=== PATIENT | male | born 1995 | race Caucasian/White ===

== ENCOUNTER 2016-12-05 22:18 | Inpatient (IN) | payer BC ==
[2016-12-05 22:58] LABS: Urine Bilirubin Negative (Negative); Urine Glucose Negative (Negative); Urine Nitrite Negative (Negative)
[2016-12-05 23:11] LABS: Benzodiazepine Urine Screen None Detected (None Detect)
--- NOTE | 2016-12-05 23:11 | ED ---
Meera Bernal SooYoung, scribed for Zeb Alicea MD on 12/05/16 at 2235 . 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 Pt states he took 16-20 oxycodone pills over the course of the day. He took about 5 pills around 0700, and another 5 pills mid-afternoon. Pt states he was attempting to commit suicide. He states a prev attempt about one week ago. He overdosed on Tylenol PM , but did not go to the hospital that time. - History Of Current Complaint Chief Complaint: EDOverdose Stated Complaint: OVERDOSE-OXYCODONE Time Seen by Provider: 12/05/16 22:33 Hx Obtained From: Patient, Family/Lead Nitrate Processor - parents present Ingestion History: Type/Name Of Drug - oxycodone, Amount Ingested - 16-20 pills Overdose Characteristics: Oral Associated Signs And Symptoms: Intentional Ingestion, Other: - pos: SI Related Hx: Suicidal, Suicidal: Prior Attempt(s) - Allergies/Home Medications Allergies/Adverse Reactions: Allergies Allergy/AdvReac Type Severity Reaction Status Date / Time No Known Allergies Allergy Verified 01/17/15 11:44 PMH/Surg Hx/FS Hx/Imm Hx Previously Healthy: Yes Respiratory History: Denies: Hx Chronic Obstructive Pulmonary Disease (COPD) Sensory History: Denies: Hx Deafness Opthamlomology History: Denies: Hx Legally Blind Infectious Disease History: Denies: History Other Infectious Disease, Traveled Outside the [place] in Last 30 Days - Social History Occupation: Employed Full-time Lives: With Family Alcohol Use: None Hx Substance Use: Yes Substance Use Type: Reports: Other - oxycodone OD Hx Tobacco Use: No Smoking Status (MU): Never Smoked Tobacco Review of Systems Positive: Other - pos: overdose. Negative: Fever Psychological: Other - pos: SI with attempt All Other Systems Reviewed And Are Negative: Yes Physical Exam Triage Information Reviewed: Yes Vital Signs On Initial Exam: Initial Vitals Temp Pulse Resp BP 99 F 100 20 166/88 12/05/16 22:22 12/05/16 22:22 12/05/16 22:22 12/05/16 22:22 Vital Signs Reviewed: Yes Appearance: Positive: No Pain Distress, Thin Skin: Positive: Warm Head/Face: Positive: Normal Head/Face Inspection Eyes: Positive: KIERSTEN ENT: Positive: Hearing grossly normal Neck: Positive: Supple Respiratory/Lung Sounds: Positive: Clear to Auscultation, Breath Sounds Present Cardiovascular: Positive: RRR Abdomen Description: Positive: Nontender, Soft. Negative: Distended, Guarding Bowel Sounds: Positive: Present Musculoskeletal: Positive: Strength/ROM Intact Neurological: Positive: Alert, Oriented to Person Place, Time Diagnostics - Vital Signs Vital Signs Temp Pulse Resp BP 12/05/16 22:22 99 F 100 20 166/88 - Laboratory Lab Results: Lab Results 12/05/16 Range/Units 22:37 Urine Color Yellow Urine Appearance Clear Urine pH 5.0 (5-9) Ur Specific [place] 1.035 H (1.010-1.030) Urine Protein Negative (Negative) Urine Ketones Trace H (Negative) Urine Blood Negative (Negative) Urine Nitrate Negative (Negative) Urine Bilirubin Negative (Negative) Urine Urobilinogen Negative (Negative) Ur Leukocyte Esterase Negative (Negative) Urine Glucose Negative (Negative) Result Diagrams: 12/05/16 23:16 12/05/16 23:16 Lab Statement: Any lab studies that have been ordered have been reviewed, and results considered in the medical decision making process. - EKG 1 EKG Rhythm: Sinus Tachycardia Re-Evaluation - Re-Evaluation First Eval Change: Unchanged - pt seen by crisis, willadmit Course/Dx - Course Course Of Treatment: Pt is a 20 y/o M presents after ingesting 16-20 oxycodone pills over the course of the day. He took about 5 pills around 0700, and another 5 pills mid-afternoon. Pt states he was attempting to commit suicide. He states a prev attempt about one week ago. He overdosed on Tylenol PM, but did not go to the hospital that time. UA results are WNL, except trace ketones present and specific gravity is 1.035. Drug screen is clear except presumptive positive for opiods. EKG showed sinus tachycardia. Medically cleared for [facility] at 0018. - Diagnoses Provider Diagnoses: Suicide attempt - Physician Notifications Instructed by Provider To: Admit As Inpatient Discharge - Discharge Plan Condition: Fair Disposition: ADMITTED TO [facility] Referrals: Riley Woodard MD [Primary Care Provider] - The documentation as recorded by the scribe, VanDeMark,SooYoung accurately reflects the service I personally performed and the decisions made by me, Zeb Alicea MD.
[2016-12-05 23:36] LABS: Hematocrit 43 % (42-52); Hemoglobin 14.9 g/dl (14.0-18.0); Mean Corpuscular HGB Conc 35 g/dl (31-36); Mean Corpuscular Hemoglobin 29 pg (27-31); Mean Corpuscular Volume 83 fL (80-94); Mean Platelet Volume 9 um3 (7.4-10.4); Red Blood Count 5.17 10^6/ul (4.0-5.4); Red Cell Distribution Width 13 % (10.5-15); White Blood Count 7.7 10^3/ul (3.5-10.8)
[2016-12-05 23:48] LABS: Acetaminophen 19 mcg/mL; Alcohol < 10 mg/dL (<10); Salicylate < 2.50 mg/dL (<30)
[2016-12-05 23:49] LABS: ALT 10 U/L (7-52); AST 11 U/L (13-39); Albumin 4.3 g/dL (3.2-5.2); Alkaline Phosphatase 70 U/L (34-104); Anion Gap 7 mmol/L (2-11); BUN/Creatinine Ratio 8.8 (8-20); Blood Urea Nitrogen 10 mg/dL (6-24); CO2 Carbon Dioxide 24 mmol/L (22-32); Calcium 9.3 mg/dL (8.6-10.3); Chloride 105 mmol/L (101-111); EGFR African American 106.4 (>60); EGFR Non-African American 82.8 (>60); Globulin 2.7 g/dL (2-4); Glucose 96 mg/dL (70-100); Potassium 3.7 mmol/L (3.5-5.0); Sodium 136 mmol/L (133-145)
[2016-12-06] MEDS ORDERED: Nicotine Inhaler* 10 MG AMP INH PRN (04:50)
[2016-12-06] MEDS ORDERED: chlorproMAZINE TAB* 50 MG Q6H PRN AGITATION PO (04:50)
[2016-12-06] MEDS ORDERED: Acetaminophen TAB* 325 MG PO PRN (04:50)
[2016-12-06] MEDS ORDERED: Al Hydrox/Mg Hydrox/Simet LIQ* 30 ML UDC PO PRN (04:50)
[2016-12-06] MEDS ORDERED: Mouth Piece, Nicotine* 1 EACH CARTRIDGE INH SCH (04:50)
--- NOTE | 2016-12-06 12:19 | PN ---
MHU: Group Therapy Note - Service Type Service Type: [id number] Group Psychotherapy - Cognitive Behavioral Group Therapy ( CBT):Patient was attentive and participatory in CBT programming this morning, and remained in good behavioral control. Patient expressed positive insights regarding relevant treatment interventions and goals.
[2016-12-06] MEDS: Vitamin THERAPEUTIC TAB PO SCH (13:12)
--- NOTE | 2016-12-06 17:00 | HP ---
H&P (Free Text) History and Physical: HPI: ---- 20yo patient with no significant PPHx presents to the [facility] ED, brought by his parents, after an intentional OD on ~20 Oxycodone and Tylenol PM tabs. Patient reports he did not take all 20 at the same time. He reports taking 6-7 in am and another 6-7 midday, and another 6-7 in the evening. Patient reports trigger was his assuming a very close female friend would be leaving him for another male. Patient denies other stressors. Patient reports alcohol or illicit drug use played no role in this behavior. He reports no hx of suicide attempt. He reports no significant family hx of MH issues. He has supportive friends and family. He denies legal, occupational, or medical stressors. On interview, patient is calm, cooperative, and engaged. He displays no PMR. No delay in cognition is noted. TP is linear. Speech is spontaneous and he demonstrates an appropriate TC. Patient has visible in the milieu and patient reports he attended today's groups. Patient reports 3/10 intensity depression, but ongoing anxiety that he has lost his best friend. He denies SI on the unit. Patient reports recently sleep and appetite have been wnl. He denies feelings of hopelessness and denies anhedonia. He is future oriented in conversation regarding his working after graduation, with plans to go back and get his college degree. Patient denies hx of physical, emotional, or sexual abuse. No symptoms of psychosis reported or noted on interview. Past Psych Hx: Inpt - This is patient's 1st Outpt - NONE Dx - NONE Psychotropic Med Hx - Patient is psychotropic med naive Suicide attempt Hx / SIB Hx: Patient denies hx of suicide attempt and hx of SIB Trauma Hx: Patient denies hx of physical, emotional, or sexual abuse Substance Hx: Patient denies hx of alcohol abuse. Patient denies hx of illicit substance use. Medical Hx: NONE Surgical Hx: NONE Allergies: --------- NKDA Family Hx: -Patient reports to his knowledge, he has no family hx of attempted or completed suicide. -Patient reports to his knowledge, he has no family hx of MH issues. -Patient reports to his knowledge, he has no family hx of BONIFACIO issues. Social Hx: --------- -Born in [place], [place] -Raised in [place], [place] by mom and dad, parents are -Only child -HLOE: HS diploma -Single, no children -Currently employed -No hx of arrest for assault or DV -No legal hx -Reports no firearms in his home Home Meds: NONE PHYSICAL EXAM: GEN - in NAD, looks stated age HEENT - NC/AT, EOEMI, no lesions or discharge noted, conjunctivae clear NECK - supple, trachea midline, no JVD, no LAD CARDIAC - S1/S2, no discernable murmurs ABD - (+) BS x 4 quad, non-tender EXT - no edema, no lesions MUSCULOSKEL - 5/5 muscle strength in all extremities SKIN - intact, no lesions; texture, turgor, & pigmentation wnl NEURO - CN 2-12, steady gait VITALS: Vital Signs (72 hours) 12/05/16 12/05/16 12/05/16 22:22 22:42 22:44 Temperature 99 F Pulse Rate 100 94 Respiratory 20 13 15 Rate Blood Pressure 166/88 153/71 (mmHg) O2 Sat by Pulse 96 Oximetry 12/05/16 12/05/16 12/05/16 22:48 23:00 23:14 Temperature 99 F Pulse Rate 100 81 97 Respiratory 20 13 14 Rate Blood Pressure 166/88 143/82 147/86 (mmHg) O2 Sat by Pulse 99 95 97 Oximetry 12/05/16 12/05/16 12/06/16 23:30 23:38 00:00 Temperature Pulse Rate 82 82 93 Respiratory 13 15 10 Rate Blood Pressure 154/71 (mmHg) O2 Sat by Pulse 96 96 97 Oximetry 12/06/16 12/06/16 12/06/16 00:01 07:27 08:20 Temperature 99.0 F Pulse Rate 82 77 Respiratory 11 18 16 Rate Blood Pressure 143/81 142/37 (mmHg) O2 Sat by Pulse 96 100 Oximetry LABS: ----- Laboratory Tests 12/05/16 12/05/16 12/05/16 22:37 22:37 23:16 WBC 7.7 RBC 5.17 Hgb 14.9 Hct 43 MCV 83 MCH 29 MCHC 35 RDW 13 Plt Count 222 MPV 9 Neut % (Auto) 58.9 Lymph % (Auto) 32.2 [place] % (Auto) 5.7 Eos % (Auto) 2.7 Baso % (Auto) 0.5 Absolute Neuts (auto) 4.5 Absolute Lymphs (auto) 2.5 Absolute Monos (auto) 0.4 Absolute Eos (auto) 0.2 Absolute Basos (auto) 0 Absolute Nucleated RBC 0 Nucleated RBC % 0.1 Sodium Potassium Chloride Carbon Dioxide Anion Gap BUN Creatinine Est GFR ( Amer) Est GFR (Non-Af Amer) BUN/Creatinine Ratio Glucose Lactic Acid Calcium Total Bilirubin AST ALT Alkaline Phosphatase Total Protein Albumin Globulin Albumin/Globulin Ratio Urine Color Yellow Urine Appearance Clear Urine pH 5.0 Ur Specific [place] 1.035 H Urine Protein Negative Urine Ketones Trace H Urine Blood Negative Urine Nitrate Negative Urine Bilirubin Negative Urine Urobilinogen Negative Ur Leukocyte Esterase Negative Urine Glucose Negative Salicylates Urine Opiates Screen Presumptive positive H Acetaminophen Ur Barbiturates Screen None detected Ur Phencyclidine Scrn None detected Ur Amphetamines Screen None detected U Benzodiazepines Scrn None detected Urine Cocaine Screen None detected U Cannabinoids Screen None detected Serum Alcohol 12/05/16 12/05/16 23:16 23:16 WBC RBC Hgb Hct MCV MCH MCHC RDW Plt Count MPV Neut % (Auto) Lymph % (Auto) [place] % (Auto) Eos % (Auto) Baso % (Auto) Absolute Neuts (auto) Absolute Lymphs (auto) Absolute Monos (auto) Absolute Eos (auto) Absolute Basos (auto) Absolute Nucleated RBC Nucleated RBC % Sodium 136 Potassium 3.7 Chloride 105 Carbon Dioxide 24 Anion Gap 7 BUN 10 Creatinine 1.14 Est GFR ( Amer) 106.4 Est GFR (Non-Af Amer) 82.8 BUN/Creatinine Ratio 8.8 Glucose 96 Lactic Acid 1.1 Calcium 9.3 Total Bilirubin 0.60 AST 11 L ALT 10 Alkaline Phosphatase 70 Total Protein 7.0 Albumin 4.3 Globulin 2.7 Albumin/Globulin Ratio 1.6 Urine Color Urine Appearance Urine pH Ur Specific [place] Urine Protein Urine Ketones Urine Blood Urine Nitrate Urine Bilirubin Urine Urobilinogen Ur Leukocyte Esterase Urine Glucose Salicylates < 2.50 Urine Opiates Screen Acetaminophen 19 Ur Barbiturates Screen Ur Phencyclidine Scrn Ur Amphetamines Screen U Benzodiazepines Scrn Urine Cocaine Screen U Cannabinoids Screen Serum Alcohol < 10 MSE: ----- Appearance - moderate build,tall 20yo male, looks stated age, fair hygeine, in NAD Behavior - engaged, calm, cooperative Speech - RVR wnl, prosody wnl Eye Contact - fair Mood - "doing ok" Affect -tense TP - linear TC - appropriate, regretful Perception - no signs of psychosis noted or reported Orientation - A&Ox3 Cognition - intact Insight - poor to fair Judgment - poor to fair SI / HI - reports neither currently, admission for suicide attempt ASSESSMENT: 20yo patient with no significant PPHx presents to the [facility] ED, brought by his parents, after OD on ~20 Oxycodone and Tylenol PM tabs. Patient did not take all 20 at the same time. He reports taking 6-7 in am and another 6-7 mid day, and another 6-7 in the evening. Patient reports trigger being assuming a very close female friend would leave him for another male. Patient reports alcohol and illicit drug use played no role in this behavior. He reports no hx of suicide attempt. He reports no significant family hx of MH issues. He has supportive friends and family. He currently denies SI/ HI and is regretful of this behavior. DIAGNOSIS: 1. Adjustment d/o with disturbance of mood and conduct PLAN: ------ 1. Continue admission to [facility] for safety. 2. Not considering medication at this point. 3. Continue compiling collateral information from parents. 4. Patient to participate in milieu activities and groups.
[2016-12-07] MEDS: Vitamin THERAPEUTIC TAB PO SCH (09:57)
--- NOTE | 2016-12-07 15:16 | PN ---
Subjective - Subjective Subjective: Faheem endorses lower distress level, improving mood, absence of suicidal ideation or urges for sib or withdrawal symptoms. He reports not feeling as upset about relational issues that led to his overdose. He is future-oriented, discusses plan to enroll in [employer] for the fall. Per staff, he has been adherent to unit's routines. Objective - Appearance Appearance: Healthy Appearing Dysmorphic Features: No Hygiene: Normal Grooming: Well Kept - Behavior Motor Skills: Fine Motor Skills: Normal, Gross Motor Skills: Normal, Gait: Normal Psychomotor Activities: Normal Exhibits Abnormal Movement: No - Attitude and Relatedness Attitude and Relatedness: Superficially Cooperative Eye Contact: Fair - Speech Quality: Unpressured Latencies: Normal Quantity: Appropriate - Mood Patient's Decription of Mood: "Okay" - Affect Observed Affect: Fair Affect Consistent with: Euthymia - Thought Process Patient's Thought Process: Coherent, Goal Directed Thought Content: No Passive Wish, No Suicidal Planning, No Homicidal Ideation, No Paranoid Ideation - Sensorium Delusions: No Experiencing Hallucinations: No, Sensorium is Clear - Level of Consciousness Level of Consciousness: Alert Orientation: Yes Intact - Impulse Control Impulse Control: Intact - Insight and Judgement Insight and Judgement: Poor Assessment - Assessment Merits Inpatient Hospitalization: For Ongoing Evaluation, Consolidate Improvements, For Discharge Planning Inpatient DSM-IV Dx: 1. Adjustment d/o with disturbance of mood and conduct Clinical Impression: 20yo patient with no significant PPHx presents to the [facility] ED, brought by his parents, after intentional OD on ~20 Oxycodone and Tylenol in the context of relational difficulties. Stabilizing quickly in this structured setting, denying suicidality and monica for safety. Plan - Treatment Plan Level of Observation: 15 Minute Checks, Full Code Status Obtain Collateral Information: Yes Other Treatment in Form of: Structure and Support, Therapeutic Milieu, Group Therapy, Individual Therapy Medications: Current Medications Acetaminophen (Tylenol Tab*) 650 mg PO Q4H PRN PRN Reason: PAIN or TEMP > 101 F Al Hydrox/Mg Hydrox/Simethicone (Maalox Plus*) 30 ml PO Q4H PRN PRN Reason: INDIGESTION Chlorpromazine HCl (Thorazine Tab*) 50 mg PO Q6H PRN PRN Reason: AGITATION Device (Nicotine Mouth Piece*) 1 each INH .CARTRIDGE SILVIO Diphenhydramine HCl (Benadryl Po*) 50 mg PO Q6H PRN PRN Reason: AGITATION/INSOMNIA Multivitamins (Theragran Tab*) 1 tab PO DAILY SILVIO Last Admin: 12/07/16 09:57 Dose: Not Given Nicotine (Nicotine Inhaler*) 10 mg INH Q2H PRN PRN Reason: CRAVING - Discharge Plan Discharge Plan: Outpatient Follow Up Outpatient Program: [facility]
[2016-12-08 08:28] VITALS: BP 130/76
[2016-12-08] MEDS: Vitamin THERAPEUTIC TAB PO SCH (09:19)
--- NOTE | 2016-12-08 11:09 | PN ---
MHU: Group Therapy Note - Service Type Service Type: [id number] Group Psychotherapy - Cognitive Behavioral Group Therapy ( CBT):Patient was attentive and participatory in CBT programming this morning, and remained in good behavioral control. Patient expressed positive insights regarding relevant treatment interventions and goals.
--- NOTE | 2016-12-08 14:36 | DS ---
Subjective - Subjective Service Types: [id number] Hosp [place] Day Mgmt simple under 30 min Subjective: Patient is active in milieu activities, engaged in group, and has been more social with peers. Patient reports his mood as "fine". He reports good benefit from groups. He is future oriented in conversation reporting his interest in pursuing getting into college and working toward a business management degree. Patient has reported no SI/HI or AH/VH since admission. Sleep and appetite are wnl. Patient asked to present to his local ED if SI recurs. He was amenable and acknowledged understanding of his family and community supports. Objective - Appearance Appearance: Well Developed/Nourished Dysmorphic Features: No Hygiene: Normal Grooming: Fairly Well Kept - Behavior Psychomotor Activities: Normal Exhibits Abnormal Movement: No - Attitude and Relatedness Attitude and Relatedness: Cooperative Eye Contact: Good - Speech Quality: Unpressured Latencies: Normal Quantity: Appropriate - Mood Patient's Decription of Mood: "Fine" - Affect Observed Affect: Fair Affect Consistent with: Euthymia - Thought Process Patient's Thought Process: Coherent Thought Content: No Passive Wish, No Suicidal Planning, No Homicidal Ideation, No Paranoid Ideation - Sensorium Experiencing Hallucinations: No, Sensorium is Clear Type of Hallucinations: Visual: No, Auditory: No, Command: No - Level of Consciousness Level of Consciousness: Alert Orientation: Yes Intact, Yes Orientated to Time, Yes Orientated to Place, Yes Orientated to Person - Impulse Control Impulse Control: Intact - Insight and Judgement Insight and Judgement: Fair - Group Participation Particating in Group Activities: Yes - Medication Management Medication Management Adherence: Yes Treatment Course & Assessment Clinical Course & Impression: HOSPITAL COURSE: 20yo patient with no significant PPHx presents to the [facility] ED, brought by his parents, after an intentional OD on ~20 Oxycodone and Tylenol PM tabs. Patient reports he did not take all 20 at the same time. He reports taking 6-7 in am and another 6-7 midday, and another 6-7 in the evening. Patient reports trigger was his assuming a very close female friend would be leaving him for another male. Patient denies other stressors. Patient reports alcohol or illicit drug use played no role in this behavior. He reports no hx of suicide attempt. He reports no significant family hx of MH issues. He has supportive friends and family. He denies legal, occupational, or medical stressors. Patient found great benefit from groups and has focused himself on pursuing college admission to work toward a business management degree. On day of discharge patient. Patient is future oriented. Patient's acute risk has been reduced significantly. Patient is amenable to discharge f/u plan and will be discharged home to mother's care. PERTINENT LABS: Laboratory Tests 12/05/16 12/05/16 12/05/16 22:37 22:37 23:16 WBC 7.7 RBC 5.17 Hgb 14.9 Hct 43 MCV 83 MCH 29 MCHC 35 RDW 13 Plt Count 222 MPV 9 Neut % (Auto) 58.9 Lymph % (Auto) 32.2 [place] % (Auto) 5.7 Eos % (Auto) 2.7 Baso % (Auto) 0.5 Absolute Neuts (auto) 4.5 Absolute Lymphs (auto) 2.5 Absolute Monos (auto) 0.4 Absolute Eos (auto) 0.2 Absolute Basos (auto) 0 Absolute Nucleated RBC 0 Nucleated RBC % 0.1 Sodium Potassium Chloride Carbon Dioxide Anion Gap BUN Creatinine Est GFR ( Amer) Est GFR (Non-Af Amer) BUN/Creatinine Ratio Glucose Lactic Acid Calcium Total Bilirubin AST ALT Alkaline Phosphatase Total Protein Albumin Globulin Albumin/Globulin Ratio Urine Color Yellow Urine Appearance Clear Urine pH 5.0 Ur Specific [place] 1.035 H Urine Protein Negative Urine Ketones Trace H Urine Blood Negative Urine Nitrate Negative Urine Bilirubin Negative Urine Urobilinogen Negative Ur Leukocyte Esterase Negative Urine Glucose Negative Salicylates Urine Opiates Screen Presumptive positive H Acetaminophen Ur Barbiturates Screen None detected Ur Phencyclidine Scrn None detected Ur Amphetamines Screen None detected U Benzodiazepines Scrn None detected Urine Cocaine Screen None detected U Cannabinoids Screen None detected Serum Alcohol 12/05/16 12/05/16 23:16 23:16 WBC RBC Hgb Hct MCV MCH MCHC RDW Plt Count MPV Neut % (Auto) Lymph % (Auto) [place] % (Auto) Eos % (Auto) Baso % (Auto) Absolute Neuts (auto) Absolute Lymphs (auto) Absolute Monos (auto) Absolute Eos (auto) Absolute Basos (auto) Absolute Nucleated RBC Nucleated RBC % Sodium 136 Potassium 3.7 Chloride 105 Carbon Dioxide 24 Anion Gap 7 BUN 10 Creatinine 1.14 Est GFR ( Amer) 106.4 Est GFR (Non-Af Amer) 82.8 BUN/Creatinine Ratio 8.8 Glucose 96 Lactic Acid 1.1 Calcium 9.3 Total Bilirubin 0.60 AST 11 L ALT 10 Alkaline Phosphatase 70 Total Protein 7.0 Albumin 4.3 Globulin 2.7 Albumin/Globulin Ratio 1.6 Urine Color Urine Appearance Urine pH Ur Specific [place] Urine Protein Urine Ketones Urine Blood Urine Nitrate Urine Bilirubin Urine Urobilinogen Ur Leukocyte Esterase Urine Glucose Salicylates < 2.50 Urine Opiates Screen Acetaminophen 19 Ur Barbiturates Screen Ur Phencyclidine Scrn Ur Amphetamines Screen U Benzodiazepines Scrn Urine Cocaine Screen U Cannabinoids Screen Serum Alcohol < 10 Discharge Meds: NONE Consultants: NONE Follow-Up: Appts for within the next 2 weeks scheduled by BRIAN for PCP. Clear for Discharge: Adequate Clinical Respons, Acceptable Safety Profile Inpatient DSM-IV Dx: 1. Adjustment d/o with disturbance of mood and conduct Discharge Planning - Discharge Planning Discharge Plan: Outpatient Follow Up Outpatient Program: [facility] Recommendations for Continuing Care: Primary Care Followup Medications: Current Medications Acetaminophen (Tylenol Tab*) 650 mg PO Q4H PRN PRN Reason: PAIN or TEMP > 101 F Al Hydrox/Mg Hydrox/Simethicone (Maalox Plus*) 30 ml PO Q4H PRN PRN Reason: INDIGESTION Chlorpromazine HCl (Thorazine Tab*) 50 mg PO Q6H PRN PRN Reason: AGITATION Device (Nicotine Mouth Piece*) 1 each INH .CARTRIDGE SILVIO Diphenhydramine HCl (Benadryl Po*) 50 mg PO Q6H PRN PRN Reason: AGITATION/INSOMNIA Multivitamins (Theragran Tab*) 1 tab PO DAILY REPLACED BY [facility] Last Admin: 12/08/16 09:19 Dose: Not Given Nicotine (Nicotine Inhaler*) 10 mg INH Q2H PRN PRN Reason: CRAVING Discharge Planning: Prescriptions provided for discharge [x] Yes [] No Follow up care details as per social work arrangements. Patient response to discharge plan: [] eager for discharge [x] agreeable with discharge plan [] ambivalent about discharge [] disagrees with discharge today
== END 2016-12-08 16:35 | disposition home or self-care (01) | DRG 755 ==
LOC: ED 22:18 → BSU 12-06 05:20
PROVIDERS: ADMIT Psychiatry & Neurology Psychiatry; ATTEND Psychiatry & Neurology Psychiatry
PROC: GZHZZZZ Group Psychotherapy (ICD-10-PCS; principal; 2016-12-08)
DX: F43.25 Adjustment disorder with mixed disturbance of emotions and conduct (principal); F32.9 Major depressive disorder, single episode, unspecified; F41.9 Anxiety disorder, unspecified; T40.2X2A Poisoning by other opioids, intentional self-harm, initial encounter; Y92.009 Unspecified place in unspecified non-institutional (private) residence as the place of occurrence of the external cause
CPT/HCPCS: 36415; 80053; 80307; 80320; 80329; 81003; 83605; 85025; 90853; 93005; 99222; 99231; 99238; A9270-GY; G0480

== ENCOUNTER 2017-12-16 12:12 | Emergency (ER) | payer BC ==
[2017-12-16 13:05] VITALS: BP 148/69
--- NOTE | 2017-12-16 13:17 | ED ---
Head Injury - HPI Summary HPI Summary: Pt. is a 21 y.o male who presents to the ER for a head injury that occurred yesterday. Pt. states he jumped up to see if anything was on top of a dryer when he struck his left forehead o n the door frame. No LOC. Pt. c/o a mild headache today. He denies vision changes, N/V. Pt. concerned bc he was feeling "down" today and has a hx of depression. Pt. is currently on an antidepressant and sees a therapist regularly. He denies SI or HI. Symptoms are mild in severity. No current modifying factors. - History Of Current Complaint Chief Complaint: EDHeadInjury Stated Complaint: HEAD INJURY Time Seen by Provider: 12/16/17 12:44 Hx Obtained From: Patient Pain Intensity: 2 Pain Scale Used: 0-10 Numeric - Allergies/Home Medications Allergies/Adverse Reactions: Allergies Allergy/AdvReac Type Severity Reaction Status Date / Time No Known Allergies Allergy Verified 12/16/17 12:30 PMH/Surg Hx/FS Hx/Imm Hx Previously Healthy: Yes Respiratory History: Denies: Hx Chronic Obstructive Pulmonary Disease (COPD) Sensory History: Denies: Hx Contacts or Glasses, Hx Legally Blind, Hx Deafness, Hx Hearing Aid Opthamlomology History: Denies: Hx Contacts or Glasses, Hx Legally Blind Psychiatric History: Reports: Hx Suicide Attempt - OD 12/2016 Denies: Hx Eating Disorder, Hx Inpatient Treatment, Hx Community Mental Health Ut, Hx of Violent Episodes Against Others, Hx Substance Abuse Infectious Disease History: No Infectious Disease History: Denies: History Other Infectious Disease, Traveled Outside the [place] in Last 30 Days - Social History Occupation: Employed Full-time Lives: With Family Alcohol Use: None Hx Substance Use: Yes Substance Use Type: Reports: None Hx Tobacco Use: No Smoking Status (MU): Never Smoked Tobacco Have You Smoked in the Last Year: No Review of Systems Positive: Headache. Negative: Weakness, Paresthesia, Numbness, Syncope All Other Systems Reviewed And Are Negative: Yes Physical Exam Triage Information Reviewed: Yes Vital Signs On Initial Exam: Initial Vitals Temp Pulse Resp BP Pulse Ox 97.6 F 67 16 149/69 99 12/16/17 12:27 12/16/17 12:27 12/16/17 12:27 12/16/17 12:27 12/16/17 12:27 Vital Signs Reviewed: Yes Appearance: Positive: Well-Appearing - Pt. sitting on bed in NAD. Mother present. Skin: Positive: Warm, Dry Head/Face: Positive: Other - Small, superifical abrasion noted to the left forehead. No raccoon eyes or mack sign. Eyes: Positive: Normal, EOMI, KIERSTEN ENT: Positive: Other - No hemotympanum bilaterally. Neck: Positive: Supple, Nontender Neurological: Positive: Normal, CN Intact II-III Psychiatric: Positive: Affect/Mood Appropriate Diagnostics - Vital Signs Vital Signs Temp Pulse Resp BP Pulse Ox 12/16/17 13:02 97.6 F 68 16 148/69 99 12/16/17 12:27 97.6 F 67 16 149/69 99 - Laboratory Lab Statement: Any lab studies that have been ordered have been reviewed, and results considered in the medical decision making process. Head Injury Course/Dx Course Of Treatment: Patient presenting for evaluation after a minor head injury. No indication for head CT. Advised patient Tylenol or Motrin for pain as directed. To ice forehead intermittently. Close follow-up with PCP for recheck. Return to the ER if symptoms change or worsen. Patient understands and agrees with plan. - Diagnoses Differential Diagnosis/HQI/PQRI: Cerebral Contusion, Cervical Sprain, Concussion Without LOC, Contusion, Hematoma, Intracranial Bleed, Laceration, Skull Fracture Provider Diagnoses: Closed head injury Discharge - Sign-Out/Discharge Documenting (check all that apply): Patient Departure - Discharge Plan Condition: Good Disposition: HOME Patient Education Materials: Concussion (ED), Head Injury (ED) Referrals: Lit Guillen MD [Primary Care Provider] - Additional Instructions: Schedule a close follow up appointment with your PCP Continue medications as directed Tylenol or Motrin for pain as directed Apply ice intermittently Return to ER if symptoms change or worsen - Billing Disposition and Condition Condition: GOOD Disposition: Home
== END 2017-12-16 13:02 | disposition home or self-care (01) ==
LOC: ED 12:12
DX: S09.90XA Unspecified injury of head, initial encounter (principal); W22.8XXA Striking against or struck by other objects, initial encounter; Y92.9 Unspecified place or not applicable
CPT/HCPCS: 99282